=== PATIENT | female | born 1945 | race Caucasian/White ===

== ENCOUNTER → 2017-09-25 | Outpatient (CLI) | payer MEDICARE, MEDICAID ==
[~2017-09-25] MED LIST: ALBUTEROL0.09 MG/A2 INH; AMBIEN10 M1 PO; B COMPLEX PO; CALCIUM + D 5001 TAB PO; CELEXA20 MG PO; COZAAR50 MG PO; ENDOCET 325 MG PO; LOVASTATIN10 MG PO; LOVASTATIN40 MG PO; MAGNESIUM400 M1 PO; MULTI VITAMINS1 TAB PO; Mysoline50 MG PO; NEXIUM40 MG PO; OYSTER SHELL CA1 TA4 PO; PAXIL10 MG PO; PRILOSEC20 M1 PO; PRISTIQ50 MG PO; SINEMET 10-1001 TA1 PO; VIT PO; VITAMIN D22000 UNIT PO; VITAMIN D5000 IU PO; WELLBUTRIN XL150 MG PO; XANAX0.5 MG PO
[2017-09-25 14:24] LABS: BASO # 0.1 10*3/uL (0.0-0.1); BASO % 1.2 % (0.0-1.0); EOS # 0.2 10*3/uL (0.0-0.4); EOS % 3.6 % (1.0-4.0); HEMATOCRIT 35.3 % (37.0-47.0); HEMOGLOBIN 11.4 g/dl (12.0-16.0); LYMPH # 1.4 10*3/uL (1.3-4.4); LYMPH % 27.5 % (27.0-41.0); MEAN CELL VOLUME 89.1 fl (81.0-99.0); MEAN CORPUSCULAR HGB 28.8 pg (27.0-31.0); MEAN CORPUSCULAR HGB CONC 32.3 g/dl (33.0-37.0); MEAN PLATELET VOLUME 9.1 fl (9.6-12.3); MONO # 0.5 10*3/uL (0.1-1.0); MONO % 9.8 % (3.0-9.0); NEUT # 2.9 10*3/uL (2.3-7.9); NEUT % 57.7 % (47.0-73.0); PLATELET COUNT AUTOMATED 245 10*3/uL (130-400); RED BLOOD COUNT 3.96 10*6/uL (4.10-5.10); RED CELL DISTRI WIDTH 13.6 % (0-14.5)
[2017-09-25 15:00] LABS: ACT PARTIAL THROMBO TIME 26.5 SECONDS (20.8-31.5)
== END | disposition home or self-care (01) ==
LOC: LAB 13:43
PROVIDERS: Internal Medicine
DX: C78.7 Secondary malignant neoplasm of liver and intrahepatic bile duct (principal); C02.9 Malignant neoplasm of tongue, unspecified; I10 Essential (primary) hypertension; J44.9 Chronic obstructive pulmonary disease, unspecified; R30.0 Dysuria; F33.1 Major depressive disorder, recurrent, moderate; J43.1 Panlobular emphysema; R42 Dizziness and giddiness; G25.81 Restless legs syndrome; Z85.3 Personal history of malignant neoplasm of breast

== ENCOUNTER → 2017-09-26 | Outpatient (CLI) | payer MEDICARE, MEDICAID | END | disposition home or self-care (01) | LOC: CARD 13:06 | DX: Z01.818 Encounter for other preprocedural examination (principal); R79.1 Abnormal coagulation profile ==

== ENCOUNTER 2017-10-30 10:28 | Inpatient (IN) | payer MEDICARE, MEDICAID ==
[~2017-10-30] VITALS: Ht 153.7 cm; Wt 59.1 kg
--- NOTE | ~2017-10-30 | DS ---
[place], [place] DISCHARGE SUMMARY NAME: VIKTOR MARR UNIT #: [id number] ROOM: 518 DOCTOR: NELDA COVARRUBIAS MD BIRTHDATE: [birth year] DOS: HOSPITAL COURSE: The patient is 72 years old. The patient is very well known to us, comes in with complaints of severe diarrhea. She also had blood in her stools and was quite concerned and decided to come into the office. Please see H and P for details of the admission, the patient was placed on IV fluids and stool for C. difficile and this came back positive. The patient was immediately placed on Flagyl. She is allergic to VANCOMYCIN. Consultation with Dr. Avila was obtained and he suggested continued medical management. She was hypokalemic, supplementation was ordered. The patient has had significant improvement with the medications. Her diarrhea has completely resolved, so the plan therefore is to discharge her to home today. She is hypokalemic, supplementation has been given. She is overall stable and improved and is not having any new problems. Plans is to discharge her and we will continue PT/OT as an outpatient for failure to thrive. Visiting nurses will be consulted for that. DISCHARGE MEDICATIONS: The patient's medications on discharge will be Protonix 40 mg daily; Flagyl 250 q.i.d. for 2 weeks, t.i.d. for 2 weeks and then twice a day for 1 week and then discontinued; KCl 20 mEq daily Protonix 40 daily and then home medications. NELDA COVARRUBIAS MD CM:DISCHARG [id number] NELDA COVARRUBIAS MD 11/01/17 1004 interface
--- NOTE | ~2017-10-30 | WRIGHTHP ---
[place], [place] PATIENT HISTORY AND PHYSICAL EXAM NAME: VIKTOR MARR [facility] #: [id number] UNIT #: [id number] ROOM: 518 DOCTOR: NELDA COVARRUBIAS MD BIRTHDATE: [birth year] DOS: HISTORY OF PRESENT ILLNESS: The patient is 72 years old, very well known to us, comes in with complaints of diarrhea with blood in her stool for the last several days duration. The patient says that she initially got low grade fever and diarrhea and took some Kaopectate and it started to help. She started taking Imodium; it helped, so she stopped taking the medicine. Two days after that she started having diarrhea and this time, it was associated with blood in her stools and she was quite concerned, so she decided to come into the office. Denies having any chest pains, palpitations, does not have any fever or chills right now. Does not have any nausea or any emesis. Appetite is very poor and she is pretty weak. PAST MEDICAL HISTORY: Significant for; 1. CA of the breast with mets to the liver, on chemotherapy. 2. History of CA of the tongue, status post partial glossectomy and lymph node resection. 3. COPD with heavy nicotine abuse. 4. Major depression. 5. Protein-calorie malnutrition. 6. Chronic back pain with history of lumbar laminectomy. MEDICATIONS: She is on right now bupropion 300 daily, lovastatin 10 daily and oxycodone 10 t.i.d. SOCIAL HISTORY: Currently not a smoker. PHYSICAL EXAMINATION: GENERAL: The patient is awake, alert and oriented. VITAL SIGNS: Graphic trend shows blood pressure 116/60, pulse of 70, respirations 18 and temperature 99.4. LUNGS: Clear. HEART: Regular. ABDOMEN: Obese, soft and nontender. EXTREMITIES: Without any edema. LABORATORY DATA: Shows a WBC count of 10.7, hemoglobin 11.4, hematocrit 34.6 and platelets were 385. BMP: BUN 8, creatinine 0.85, sodium 139, potassium 3.4 and glucose 94. Liver enzymes normal. Albumin 2.7. ASSESSMENT AND PLAN: 1. The patient who presents with diarrhea, rule out infectious pathology. The patient has been admitted. Clostridium difficile titers have been ordered and they have come back positive immediately and the patient is placed on Flagyl. 2. Hypokalemia. Supplementation was ordered. 3. Adult failure to thrive, possibly from significant diarrhea. Intravenous fluids have been ordered, but the patient should be able to go home in a day once the patient is more stable. [place], [place] PATIENT HISTORY AND PHYSICAL EXAM NAME: VIKTOR MARR UNIT #: [id number] ROOM: 8 DOCTOR: NELDA COVARRUBIAS MD BIRTHDATE: [birth year] NELDA COVARRUBIAS MD CM:HISPHYS:PATIENT HISTORY AND PHYSICAL EXAMINATION [phone] NELDA COVARRUBIAS MD 10/31/1756 interface
--- NOTE | ~2017-10-30 | PR ---
[place], [place] PROGRESS NOTE NAME: VIKTOR MARR UNIT #: [id number] ROOM: 518 DOCTOR: ALVIN DAWSON,[place] BIRTHDATE: [birth year] DOS: 11/01/2017 SUBJECTIVE: The patient is not having any complaints this morning. Diarrhea seems to be much improved. She is eating better. PHYSICAL EXAMINATION: VITAL SIGNS: shows blood pressure 100/54, pulse of 75, respirations 20, temperature 98.8. LUNGS: Clear. HEART: Regular. ABDOMEN: Obese, soft, nontender. EXTREMITIES: Without any edema. ASSESSMENT AND PLAN: 1. Clostridium difficile diarrhea on medications, which has improved. The plan is to discharge her to home today. 2. Hypokalemia. Supplementation was ordered. 3. Adult failure to thrive. The patient will receive PT/OT as an outpatient. LAWSON ESQUIVEL MD CM:PNTRANS [id number] LAWSON ESQUIVEL MD 11/01/172010 interface
[2017-10-30 10:45] VITALS: BP 115/89
[2017-10-30] MEDS ORDERED: LOVASTATIN10 MG PO (11:48)
[2017-10-30] MEDS ORDERED: OXYCODONE HCL10 M1 PO (11:48)
[2017-10-30] MEDS ORDERED: WELLBUTRIN XL300 MG PO (11:48)
[2017-10-30 12:23] LABS: BASO # 0.1 10*3/uL (0.0-0.1); BASO % 0.6 % (0.0-1.0); EOS # 0.2 10*3/uL (0.0-0.4); EOS % 1.5 % (1.0-4.0); HEMATOCRIT 34.6 % (37.0-47.0); HEMOGLOBIN 11.3 g/dl (12.0-16.0); LYMPH # 1.8 10*3/uL (1.3-4.4); LYMPH % 16.5 % (27.0-41.0); MEAN CELL VOLUME 85.9 fl (81.0-99.0); MEAN CORPUSCULAR HGB CONC 32.7 g/dl (33.0-37.0); MEAN PLATELET VOLUME 8.9 fl (9.6-12.3); MONO # 0.8 10*3/uL (0.1-1.0); MONO % 7.2 % (3.0-9.0); NEUT # 7.9 10*3/uL (2.3-7.9); NEUT % 73.5 % (47.0-73.0); PLATELET COUNT AUTOMATED 385 10*3/uL (130-400); RED BLOOD COUNT 4.03 10*6/uL (4.10-5.10); RED CELL DISTRI WIDTH 13.6 % (0-14.5); WHITE BLOOD COUNT 10.7 10*3/uL (4.8-10.8)
[2017-10-30 12:37] LABS: ALBUMIN 2.8 gm/dl (3.1-4.5); ALKALINE PHOSPHATASE 103 U/L (45-117); BUN 8 mg/dl (7-24); CHLORIDE 104 mmol/L (98-107); CREATININE 0.85 mg/dL (0.55-1.02); POTASSIUM 3.4 mmol/L (3.5-5.1); SGOT/AST 13 IU/L (3-35); SGPT/ALT 11 U/L (12-78); SODIUM 139 mmol/L (136-145); TOTAL PROTEIN 6.7 gm/dL (6.4-8.2)
[2017-10-30 16:00] VITALS: BP 112/65
[2017-10-30 20:00] VITALS: BP 123/56
[2017-10-31] VITALS: BP 103/87
[2017-10-31 04:00] VITALS: BP 115/61
[2017-10-31 16:00] VITALS: BP 108/73
[2017-10-31 20:00] VITALS: BP 148/58
[2017-11-01] VITALS: BP 116/51
[2017-11-01 08:15] VITALS: BP 100/54
[2017-11-01 08:18] LABS: BUN 8 mg/dl (7-24); CHLORIDE 110 mmol/L (98-107); POTASSIUM 3.3 mmol/L (3.5-5.1); SODIUM 143 mmol/L (136-145)
[2017-11-01] MEDS ORDERED: FLAGYL250 MG PO (08:51)
[2017-11-01] MEDS ORDERED: PROTONIX40 MG PO (08:51)
[2017-11-01] MEDS ORDERED: K-TAB20 MEQ PO (08:54)
== END 2017-11-01 11:56 | disposition home health service (06) | DRG 371 ==
LOC: 5E 10:28
PROVIDERS: Internal Medicine
DX: A04.72 Enterocolitis due to Clostridium difficile, not specified as recurrent (principal); E43 Unspecified severe protein-calorie malnutrition; C79.89 Secondary malignant neoplasm of other specified sites; E88.09 Other disorders of plasma-protein metabolism, not elsewhere classified; Z93.0 Tracheostomy status; J44.9 Chronic obstructive pulmonary disease, unspecified; E87.6 Hypokalemia; F32.9 Major depressive disorder, single episode, unspecified; D64.9 Anemia, unspecified; R74.0 Nonspecific elevation of levels of transaminase and lactic acid dehydrogenase [LDH]; G89.29 Other chronic pain; M54.9 Dorsalgia, unspecified; R62.7 Adult failure to thrive; Z85.41 Personal history of malignant neoplasm of cervix uteri; Z87.891 Personal history of nicotine dependence; Z82.49 Family history of ischemic heart disease and other diseases of the circulatory system; Z95.828 Presence of other vascular implants and grafts; Z88.1 Allergy status to other antibiotic agents; Z88.8 Allergy status to other drugs, medicaments and biological substances; Z79.899 Other long term (current) drug therapy; Z85.05 Personal history of malignant neoplasm of liver; Z85.3 Personal history of malignant neoplasm of breast

== ENCOUNTER → 2017-12-19 | Outpatient (CLI) | payer MEDICARE, MEDICAID ==
[~2017-12-19] MED LIST changes: +FLAGYL250 MG PO; +K-TAB20 MEQ PO; +OXYCODONE HCL10 M1 PO; +PROTONIX40 MG PO; +WELLBUTRIN XL300 MG PO
== END | disposition home or self-care (01) ==
LOC: LAB 13:35
DX: A04.72 Enterocolitis due to Clostridium difficile, not specified as recurrent (principal)

== ENCOUNTER → 2018-01-09 | Outpatient (CLI) | payer MEDICARE, MEDICAID | END | disposition home or self-care (01) | LOC: NM 10:00 | DX: C50.919 Malignant neoplasm of unspecified site of unspecified female breast (principal); C02.9 Malignant neoplasm of tongue, unspecified; C22.9 Malignant neoplasm of liver, not specified as primary or secondary ==

== ENCOUNTER → 2018-01-24 | Outpatient (CLI) | payer MEDICARE, MEDICAID | END | disposition home or self-care (01) | LOC: RAD 11:17 | DX: M84.48XD Pathological fracture, other site, subsequent encounter for fracture with routine healing (principal) ==

== ENCOUNTER 2018-02-22 11:36 | Inpatient (IN) | payer MEDICARE, MEDICAID ==
[~2018-02-22] VITALS: Ht 154.9 cm; Wt 65.3 kg
--- NOTE | ~2018-02-22 | DS ---
[place], [place] DISCHARGE SUMMARY [id number] #: [id number] ROOM: 422 DOCTOR: NELDA COVARRUBIAS MD BIRTHDATE: [birth year] DOS: 02/24/2018 DIAGNOSES: 1. Bilateral leg edema. 2. Diastolic dysfunction. 3. Concentric left ventricular hypertrophy. 4. Neutropenia, on chemotherapy, was on Neupogen which has improved her white cell count. 5. Cancer of the tongue, status post glossectomy. 6. Metastatic disease of the brain as well as recent CyberKnife treatment. 7. Cancer of the breast, on chemotherapy. HOSPITAL COURSE: This patient is 72-year-old, comes into the office with complaints of increasing leg edema, inability to walk and shortness of breath. The patient was thought to be in mild CHF with leg edema, was admitted. After admission, chest x-ray was done, which did not show any pathology. The patient was placed on diuretics. Routine labs were ordered. She was found to have an elevated white cell count of 25,000. This was most likely from the Neupogen that she was on. The white cell count came down to 12.4 the next and this morning it is down to 6.1. Leg edema has resolved with diuretics. She is no longer short of breath. Echocardiogram does show LVH, mild with diastolic dysfunction, but I have opted not to give her any medication at this time. The patient is stable and improved and will be discharged to home today to be followed up as an outpatient. NELDA COVARRUBIAS MD CM:BELINDAARG [phone] NELDA COVARRUBIAS MD 02/24/18 1206 interface
--- NOTE | ~2018-02-22 | WRIGHTHP ---
[place], [place] PATIENT HISTORY AND PHYSICAL EXAM [id number] UN[facility] #: [id number] ROOM: 422 DOCTOR: NELDA COVARRUBIAS MD BIRTHDATE: [birth year] DOS: 02/22/2018 SUBJECTIVE: The patient is 72 years old. The patient is very well known to us. She came to the office for routine appointment with complaints of increasing leg edema. The patient states that on the February 14, she had routine blood work at the cancer doctor's office and she was found to be neutropenic with WBC count of 1.4. She was placed on Neupogen by Dr. Valdez. She has received three injections so far and has not had a repeat WBC count yet. Meanwhile, the patient has noticed increasing leg edema. Family was also concerned by some increasing shortness of breath. The patient denies having any chest pains, palpitations, does not have any fever or chills, does not have any cough or sputum production. The patient did have venous Dopplers done as an outpatient by her oncologist, Dr. Valdez which has come back negative. PAST MEDICAL HISTORY: Significant for: 1. CA breast, for which she is currently on chemotherapy with Herceptin. 2. Metastatic disease to the brain, status post CyberKnife treatment earlier this month, as well as liver mets. 3. History of hospitalization in October with C. diff diarrhea. 4. History of CA tongue, status post glossectomy, lymph node resection. 5. COPD with nicotine abuse. 6. Major depression. 7. Protein calorie malnutrition. 8. Chronic back pain with history of lumbar laminectomy. MEDICATIONS: That the patient is currently on are vitamin D 2000 units daily, Wellbutrin 300 daily, folic acid 1 mg daily, lovastatin 10 daily, mag oxide 400 daily, multivitamin 1 tablet daily, oxycodone 10 q. 6 hours, Protonix 40 daily, potassium 20 daily, Mirapex 0.375 bedtime, Carafate 1 gram b.i.d. SOCIAL HISTORY: Smoker of about half pack of cigarettes. Denies using any alcohol. She has not smoked since she was diagnosed with CA of the mouth. OBJECTIVE EXAMINATION: GENERAL: She is awake and alert and oriented. VITAL SIGNS: Graphic trend shows blood pressure 108/48, pulse of 80, respirations 20, temperature 98.6. LUNGS: Diminished breath sounds, clear. HEART: Regular. ABDOMEN: Obese, soft, nontender. EXTREMITIES: About 3+ pitting edema bilaterally. ASSESSMENT AND PLAN: 1. The patient with bilateral leg edema with increasing shortness of breath, possibly has underlying diastolic dysfunction. The patient has been admitted for IV diuretics as well as echocardiogram. 2. CA of the breast, on chemotherapy, with neutropenia, was on Neupogen injections. Repeat count has been ordered. 3. Hypokalemia. Supplementation has been ordered. [place], [place] PATIENT HISTORY AND PHYSICAL EXAM NAME: VIKTOR MARR UNIT #: [id number] ROOM: 422 DOCTOR: NELDA COVARRUBIAS MD BIRTHDATE: [birth year] NELDA COVARRUBIAS MD CM:HISPHYS:PATIENT HISTORY AND PHYSICAL EXAMINATION [phone] NELDA COVARRUBIAS MD 02/24/18 0100 interface
--- NOTE | ~2018-02-22 | PR ---
[place], [place] PROGRESS NOTE NAME: VIKTOR MARR UNIT #: [id number] ROOM: 422 DOCTOR: NELDA COVARRUBIAS MD BIRTHDATE: [birth year] DOS: SUBJECTIVE: The patient is doing fine without any complaints. Her shortness of breath has completely resolved. Leg edema has resolved. OBJECTIVE: VITAL SIGNS: Graphic trend shows blood pressure 114/52, pulse of 81, respirations 20, temperature 98.6. LUNGS: Diminished breath sounds. No wheezes, rales or rhonchi heard. HEART: Regular. ABDOMEN: Soft. EXTREMITIES: Without any edema. LABORATORY DATA: BMP: Glucose 92, BUN 15, creatinine 1.15, sodium 140, potassium 3.8, chloride 102, bicarbonate 31. WBC count is 6.1, hemoglobin 11.1, hematocrit 35.1, platelets 179. ASSESSMENT AND PLAN: 1. Bilateral leg edema, resolved. 2. Diastolic dysfunction with left ventricular hypertrophy, resulting in shortness of breath. The patient does not have a history of hypertension, does not take any medications. 3. Cancer of breast, on chemotherapy, with neutropenia. White cell count has normalized to 6.1. She was on Neupogen before she arrived. The plan is to discharge her to home today. NELDA COVARRUBIAS MD CM:PNTRANS [id number] NELDA COVARRUBIAS MD 02/24/18 1012 interface
[2018-02-22 12:00] VITALS: BP 127/85
[2018-02-22] MEDS ORDERED: PRAMIPEXOLE0.125 MG PO (12:31)
[2018-02-22] MEDS ORDERED: Magnesium Oxid400 MG PO (12:32)
[2018-02-22] MEDS ORDERED: Carafate1 GM PO (12:32)
[2018-02-22] MEDS ORDERED: NATURE'S BLEND F1 MG PO (12:32)
[2018-02-22] MEDS ORDERED: VITAMIN D-32000 UNIT PO (12:32)
[2018-02-22] MEDS ORDERED: ONE DAILY MULT1 EAC2 PO (12:36)
[2018-02-22 13:41] LABS: HEMATOCRIT 35.3 % (37.0-47.0); MEAN CELL VOLUME 90.7 fl (81.0-99.0); MEAN CORPUSCULAR HGB 28.3 pg (27.0-31.0); MEAN CORPUSCULAR HGB CONC 31.2 g/dl (33.0-37.0); MEAN PLATELET VOLUME 9.4 fl (9.6-12.3); PLATELET COUNT AUTOMATED 188 10*3/uL (130-400); RED BLOOD COUNT 3.89 10*6/uL (4.10-5.10); RED CELL DISTRI WIDTH 14.6 % (0-14.5); WHITE BLOOD COUNT 25.9 10*3/uL (4.8-10.8)
[2018-02-22 14:02] LABS: ALBUMIN 3.2 gm/dl (3.1-4.5); CREATININE 1.21 mg/dL (0.55-1.02); PLATELET SUFFICIENCY NORMAL (NORMAL); POTASSIUM 3.5 mmol/L (3.5-5.1); TOTAL CELLS COUNTED 100 #CELLS; TOTAL PROTEIN 7.1 gm/dL (6.4-8.2)
[2018-02-22 16:00] VITALS: BP 135/57
[2018-02-22 20:34] VITALS: BP 122/56
[2018-02-23] VITALS: BP 108/48
[2018-02-23 06:09] LABS: HEMATOCRIT 32.6 % (37.0-47.0); HEMOGLOBIN 10.2 g/dl (12.0-16.0); MEAN CELL VOLUME 90.6 fl (81.0-99.0); MEAN CORPUSCULAR HGB 28.3 pg (27.0-31.0); MEAN CORPUSCULAR HGB CONC 31.3 g/dl (33.0-37.0); MEAN PLATELET VOLUME 9.9 fl (9.6-12.3); PLATELET COUNT AUTOMATED 165 10*3/uL (130-400); RED CELL DISTRI WIDTH 14.6 % (0-14.5); WHITE BLOOD COUNT 12.4 10*3/uL (4.8-10.8)
[2018-02-23 06:23] LABS: CREATININE 1.13 mg/dL (0.55-1.02); POTASSIUM 3.2 mmol/L (3.5-5.1)
[2018-02-23 07:33] LABS: PLATELET SUFFICIENCY NORMAL (NORMAL); TOTAL CELLS COUNTED 100 #CELLS
[2018-02-23 08:00] VITALS: BP 102/50
[2018-02-23 12:00] VITALS: BP 110/50
[2018-02-23 16:00] VITALS: BP 100/46
[2018-02-23 20:00] VITALS: BP 111/73
[2018-02-24] VITALS: BP 114/52
[2018-02-24 06:09] LABS: HEMATOCRIT 35.1 % (37.0-47.0); HEMOGLOBIN 11.1 g/dl (12.0-16.0); MEAN CELL VOLUME 89.8 fl (81.0-99.0); MEAN CORPUSCULAR HGB 28.4 pg (27.0-31.0); MEAN CORPUSCULAR HGB CONC 31.6 g/dl (33.0-37.0); MEAN PLATELET VOLUME 9.7 fl (9.6-12.3); PLATELET COUNT AUTOMATED 179 10*3/uL (130-400); RED BLOOD COUNT 3.91 10*6/uL (4.10-5.10); RED CELL DISTRI WIDTH 14.6 % (0-14.5); WHITE BLOOD COUNT 6.1 10*3/uL (4.8-10.8)
[2018-02-24 06:33] LABS: CREATININE 1.15 mg/dL (0.55-1.02); POTASSIUM 3.8 mmol/L (3.5-5.1)
[2018-02-24 07:18] LABS: ATYPICAL LYMPHS 1 % (0-0); BASOPHILS 1 % (0-1); PLATELET SUFFICIENCY NORMAL (NORMAL); POLYCHROMASIA SLIGHT; TOTAL CELLS COUNTED 100 #CELLS
[2018-02-24] MEDS ORDERED: BUMETANIDE1 MG PO (07:45)
[2018-02-24 08:00] VITALS: BP 128/64
== END 2018-02-24 12:02 | disposition home or self-care (01) | DRG 948 ==
LOC: 4E 11:36
PROVIDERS: Internal Medicine
DX: R60.0 Localized edema (principal); C78.7 Secondary malignant neoplasm of liver and intrahepatic bile duct; C79.31 Secondary malignant neoplasm of brain; D70.9 Neutropenia, unspecified; E66.9 Obesity, unspecified; E87.6 Hypokalemia; C50.919 Malignant neoplasm of unspecified site of unspecified female breast; J44.9 Chronic obstructive pulmonary disease, unspecified; F32.9 Major depressive disorder, single episode, unspecified; G89.29 Other chronic pain; M54.9 Dorsalgia, unspecified; I51.7 Cardiomegaly; T45.8X5A Adverse effect of other primarily systemic and hematological agents, initial encounter; Y92.89 Other specified places as the place of occurrence of the external cause; Z90.89 Acquired absence of other organs; Z85.810 Personal history of malignant neoplasm of tongue; Z92.21 Personal history of antineoplastic chemotherapy; Z79.899 Other long term (current) drug therapy; Z68.27 Body mass index [BMI] 27.0-27.9, adult; I51.9 Heart disease, unspecified

== ENCOUNTER 2018-08-27 14:58 | Emergency (ER) | payer MEDICARE, OTHER ==
[~2018-08-27] VITALS: Ht 167.6 cm; Wt 65.8 kg
--- NOTE | ~2018-08-27 | EKG ---
[place], [place] ELECTROCARDIOGRAM REPORT NAME: VIKTOR MARR UNIT #: [id number] ROOM: DOCTOR: EPIPHANY DRAFT REPORT BIRTHDATE: [birth year] [facility] Test Date: 2018-08-27 Test Time: 16:01:41 Pat Name: VIKTOR MARR Department: Room: Gender: F Director [employer]: Nancy Ybarra : 1945 Requested By: JAIDEN GILMAN DNP Order Number: [id number] Reading MD: Enoch Camacho MD Measurements Intervals Imogene Rate: 88 P: 67 SC: 160 QRS: -13 QRSD: 90 T: 53 QT: 365 QTc: 442 Interpretive Statements Sinus rhythm Probable left atrial enlargement Compared to ECG 07/30/2018 22:08:55 Left anterior fascicular block no longer present Left-axis deviation no longer present Electronically Signed On 08-27-2018 20:06:53 PDT by Enoch Camacho MD CM:EKGRPT:ELECTROCARDIOGRAM REPORT 1601 05 JAIDEN GILMAN DNP EPIPHANY DRAFT REPORT JAIDEN GILMAN DNP
[~2018-08-27 14:58] MED LIST changes: +AFINITOR5 MG PO; +BUMETANIDE1 MG PO; +CEFUROXIME AXE250 MG PO; +Carafate1 GM PO; +DEXAMETHASONE2 MG PO; +HAIR, SKIN & N1 EACH PO; +KEFLEX500 M1 PO; +MIRAPEX0.5 MG PO; +Magnesium Oxid400 MG PO; +NATURE'S BLEND F1 MG PO; +ONE DAILY MULT1 EAC2 PO; +PRAMIPEXOLE0.125 MG PO; +RISPERIDONE1 MG PO; +VITAMIN D-32000 UNIT PO; +Zofran4 MG SL
[2018-08-27 15:58] LABS: BASO % 0.2 % (0.0-1.0); EOS % 0.1 % (1.0-4.0); HEMOGLOBIN 10.6 g/dl (12.0-16.0); LYMPH # 0.7 10*3/uL (1.3-4.4); LYMPH % 6.4 % (27.0-41.0); MEAN CELL VOLUME 87.1 fl (81.0-99.0); MEAN CORPUSCULAR HGB CONC 32.1 g/dl (33.0-37.0); MEAN PLATELET VOLUME 10.3 fl (9.6-12.3); MONO # 0.6 10*3/uL (0.1-1.0); NEUT # 9.8 10*3/uL (2.3-7.9); NEUT % 86.7 % (47.0-73.0); PLATELET COUNT AUTOMATED 141 10*3/uL (130-400); RED BLOOD COUNT 3.79 10*6/uL (4.10-5.10); RED CELL DISTRI WIDTH 19.9 % (0-14.5); WHITE BLOOD COUNT 11.3 10*3/uL (4.8-10.8)
[2018-08-27 16:07] LABS: ACT PARTIAL THROMBO TIME 21.2 SECONDS (20.8-31.5); INTERNATIONAL NORM RATIO 0.9 (2.0-3.5)
[2018-08-27 16:26] LABS: ALBUMIN 2.3 gm/dl (3.1-4.5); ALKALINE PHOSPHATASE 181 U/L (45-117); BUN 29 mg/dl (7-24); CHLORIDE 97 mmol/L (98-107); CREATININE 1.06 mg/dL (0.55-1.02); POTASSIUM 4.7 mmol/L (3.5-5.1); SGOT/AST 26 IU/L (3-35); SGPT/ALT 28 U/L (12-78); SODIUM 135 mmol/L (136-145); TOTAL PROTEIN 7.6 gm/dL (6.4-8.2)
[2018-08-27 16:27] LABS: TROPONIN I < 0.015 ng/ml (<0.045)
[2018-08-27 17:06] LABS: BILIRUBIN NEGATIVE (NEGATIVE); BLOOD NEGATIVE (NEGATIVE); CLARITY SL CLOUDY (CLEAR); COLOR YELLOW (YELLOW); GLUCOSE NEGATIVE (NEGATIVE); KETONE NEGATIVE (NEGATIVE); LEUKO ESTERASE TRACE (NEGATIVE); NITRITE NEGATIVE (NEGATIVE); SPECIFIC GRAVITY 1.015 (1.005-1.030); UROBILINOGEN 0.2 E.U./dl (0.2-1.0)
[2018-08-27 17:11] LABS: BACTERIA 4+; RBC 0-2 rbc/hpf (0-2); WBC 21-30 wbc/hpf (0-5)
[2018-08-27 20:14] VITALS: BP 129/74
== END 2018-08-27 20:18 | disposition short-term general hospital (02) ==
LOC: ED 14:58
PROVIDERS: Nurse Practitioner Family
DX: G91.9 Hydrocephalus, unspecified (principal); M54.5 Low back pain; M53.3 Sacrococcygeal disorders, not elsewhere classified; I10 Essential (primary) hypertension; J44.9 Chronic obstructive pulmonary disease, unspecified; R79.1 Abnormal coagulation profile; Z88.6 Allergy status to analgesic agent; Z88.1 Allergy status to other antibiotic agents; Z91.041 Radiographic dye allergy status; Z88.8 Allergy status to other drugs, medicaments and biological substances; Z79.899 Other long term (current) drug therapy; Z87.891 Personal history of nicotine dependence; W19.XXXA Unspecified fall, initial encounter; Y93.89 Activity, other specified; Y92.531 Health care provider office as the place of occurrence of the external cause; Y99.8 Other external cause status